=== PATIENT | female | born 1955 | race Caucasian/White ===

== ENCOUNTER → 2019-10-05 | Outpatient (CLI) | payer BC ==
[~2019-10-05] MED LIST: CLON1TAB10; GABA-339; GLIP1TAB8; METO-169; OMEPRAZOLE DR 20 MG CAPSULE
[2019-10-05 10:43] LABS: Basophils # (auto) 0.1 10 ^3/uL (0-0.2); Basophils % (auto) 1.1 % (0.0-2.0); Eosinophils # (auto) 0.1 10 ^3/uL (0-0.8); Hemoglobin 12.6 g/dL (12.2-16.2); Lymphocytes % (auto) 45.7 % (10.0-50.0); Mean Corpuscular Hgb Conc. 34.2 g/dL (32.0-36.0); Mean Corpuscular Volume 87.6 fL (80.0-100.0); Monocytes # (auto) 0.4 10 ^3/uL (0-1.3); Monocytes % (auto) 6.4 % (0.0-12.0); Neutrophils # (auto) 2.9 10 ^3/uL (1.6-8.6); Neutrophils % (auto) 44.8 % (37.0-80.0); Nucleated Red Blood Cells % 0.1 %; Platelet Count (auto) 247 10^3/uL (140-450); Red Blood Cells 4.22 10^6/uL (4.0-5.20); Red Cell Distribution Width 13.6 % (11.8-14.3); White Blood Cell 6.5 10^3/uL (4.4-10.8)
[2019-10-05 11:05] LABS: Potassium 4.5 mmol/L (3.5-5.1)
[2019-10-05 11:32] LABS: Albumin 4.2 g/dL (3.4-5.0); BUN/Creatinine Ratio 29.9; Bilirubin, Total 0.3 mg/dL (0.2-1.0); Calcium 9.4 mg/dL (8.5-10.1); Total Protein 7.8 g/dL (6.4-8.2)
== END | disposition home or self-care (01) ==
LOC: LAB 10:10
PROVIDERS: ATTEND Internal Medicine
DX: C50.411 Malignant neoplasm of upper-outer quadrant of right female breast (principal); Z88.0 Allergy status to penicillin; Z88.8 Allergy status to other drugs, medicaments and biological substances
CPT/HCPCS: 36415; 80053; 83615; 85025; 86300

== ENCOUNTER → 2019-11-17 | Outpatient (CLI) | payer BC ==
[2019-11-17 12:52] LABS: Urine Bacteria NONE SEEN /hpf (None Seen); Urine Blood Negative /uL (Negative); Urine Specific Gravity 1.017 (1.001-1.035); Urine WBC 3 /hpf (0 - 5)
[2019-11-17 22:42] LABS: Potassium 4.4 mmol/L (3.5-5.1)
[2019-11-17 22:51] LABS: Albumin 4.5 g/dL (3.4-5.0); BUN/Creatinine Ratio 21.4; Bilirubin, Total 0.7 mg/dL (0.2-1.0); Calcium 10.2 mg/dL (8.5-10.1); Total Protein 8.4 g/dL (6.4-8.2)
== END | disposition home or self-care (01) ==
LOC: LAB 12:07
PROVIDERS: ATTEND Family Medicine
DX: E10.69 Type 1 diabetes mellitus with other specified complication (principal); E78.49 Other hyperlipidemia; E66.01 Morbid (severe) obesity due to excess calories; E03.9 Hypothyroidism, unspecified
CPT/HCPCS: 36415; 80053; 80061; 81001; 82043; 82306; 82607; 83036; 84443

== ENCOUNTER → 2020-03-08 | Outpatient (CLI) | payer BC ==
[2020-03-08 10:43] LABS: Basophils # (auto) 0.1 10 ^3/uL (0-0.2); Eosinophils # (auto) 0.1 10 ^3/uL (0-0.8); Eosinophils % (auto) 1.9 % (0.0-7.0); Hematocrit 37.1 % (36.0-46.0); Hemoglobin 12.7 g/dL (12.2-16.2); Lymphocytes # (auto) 2.7 10 ^3/uL (0.4-5.4); Lymphocytes % (auto) 44.1 % (10.0-50.0); Mean Corpuscular Hemoglobin 29.9 pg (28.0-32.0); Mean Corpuscular Hgb Conc. 34.1 g/dL (32.0-36.0); Mean Corpuscular Volume 87.6 fL (80.0-100.0); Monocytes # (auto) 0.4 10 ^3/uL (0-1.3); Neutrophils # (auto) 2.8 10 ^3/uL (1.6-8.6); Nucleated Red Blood Cells % 0.1 %; Platelet Count (auto) 232 10^3/uL (140-450); Red Blood Cells 4.23 10^6/uL (4.0-5.20); Red Cell Distribution Width 13.7 % (11.8-14.3)
[2020-03-08 11:14] LABS: Potassium 4.5 mmol/L (3.5-5.1)
[2020-03-08 11:35] LABS: Albumin 4.3 g/dL (3.4-5.0); BUN/Creatinine Ratio 15.1; Bilirubin, Total 0.5 mg/dL (0.2-1.0); Calcium 10.1 mg/dL (8.5-10.1); Total Protein 8.2 g/dL (6.4-8.2)
== END | disposition home or self-care (01) ==
LOC: LAB 10:32
PROVIDERS: ATTEND Internal Medicine
DX: C50.411 Malignant neoplasm of upper-outer quadrant of right female breast (principal); E78.49 Other hyperlipidemia; R79.89 Other specified abnormal findings of blood chemistry
CPT/HCPCS: 36415; 80053; 80061; 83615; 85025; 86300

== ENCOUNTER → 2020-04-04 | Outpatient (CLI) | payer BC ==
[2020-04-04 11:09] LABS: Basophils # (auto) 0.1 10 ^3/uL (0-0.2); Eosinophils # (auto) 0.1 10 ^3/uL (0-0.8); Eosinophils % (auto) 1.6 % (0.0-7.0); Hematocrit 36.6 % (36.0-46.0); Lymphocytes # (auto) 2.5 10 ^3/uL (0.4-5.4); Lymphocytes % (auto) 44.6 % (10.0-50.0); Mean Corpuscular Hgb Conc. 35.6 g/dL (32.0-36.0); Mean Corpuscular Volume 87.1 fL (80.0-100.0); Monocytes # (auto) 0.4 10 ^3/uL (0-1.3); Monocytes % (auto) 7.6 % (0.0-12.0); Neutrophils # (auto) 2.5 10 ^3/uL (1.6-8.6); Neutrophils % (auto) 45.2 % (37.0-80.0); Nucleated Red Blood Cells % 0.1 %; Platelet Count (auto) 240 10^3/uL (140-450); Red Cell Distribution Width 13.6 % (11.8-14.3); White Blood Cell 5.6 10^3/uL (4.4-10.8)
[2020-04-04 11:49] LABS: Albumin 4.4 g/dL (3.4-5.0); Calcium 9.6 mg/dL (8.5-10.1); Potassium 4.6 mmol/L (3.5-5.1)
[2020-04-04 11:58] LABS: BUN/Creatinine Ratio 18.4; Bilirubin, Total 0.5 mg/dL (0.2-1.0); Total Protein 8.4 g/dL (6.4-8.2)
== END | disposition home or self-care (01) ==
LOC: LAB 10:33
PROVIDERS: ATTEND Internal Medicine
DX: C50.411 Malignant neoplasm of upper-outer quadrant of right female breast (principal); Z88.0 Allergy status to penicillin; Z88.1 Allergy status to other antibiotic agents; Z88.8 Allergy status to other drugs, medicaments and biological substances
CPT/HCPCS: 36415; 80053; 83615; 85025; 86300

== ENCOUNTER → 2020-06-27 | Outpatient (CLI) | payer BC ==
[~2020-06-27] MED LIST changes: -METO-169; +METO-289
== END | disposition home or self-care (01) ==
LOC: LAB 08:00
PROVIDERS: ATTEND Family Medicine
DX: L82.1 Other seborrheic keratosis (principal)

== ENCOUNTER → 2020-07-11 | Outpatient (CLI) | payer BC | END | disposition home or self-care (01) | LOC: LAB 12:03 | PROVIDERS: ATTEND Family Medicine | DX: L82.1 Other seborrheic keratosis (principal) ==

== ENCOUNTER → 2020-09-01 | Outpatient (CLI) | payer BC | END | disposition home or self-care (01) | LOC: XYW 09:02 | PROVIDERS: ATTEND Internal Medicine | DX: I08.8 Other rheumatic multiple valve diseases (principal); I12.9 Hypertensive chronic kidney disease with stage 1 through stage 4 chronic kidney disease, or unspecified chronic kidney disease; E11.22 Type 2 diabetes mellitus with diabetic chronic kidney disease; N18.9 Chronic kidney disease, unspecified | CPT/HCPCS: 93306 ==

== ENCOUNTER → 2020-09-09 | Outpatient (CLI) | payer BC ==
[2020-09-09 10:26] LABS: Basophils # (auto) 0.1 10 ^3/uL (0-0.2); Basophils % (auto) 1.4 % (0.0-2.0); Eosinophils # (auto) 0.1 10 ^3/uL (0-0.8); Eosinophils % (auto) 2.5 % (0.0-7.0); Hemoglobin 13.4 g/dL (12.2-16.2); Lymphocytes # (auto) 2.4 10 ^3/uL (0.4-5.4); Lymphocytes % (auto) 46.9 % (10.0-50.0); Mean Corpuscular Hemoglobin 30.4 pg (28.0-32.0); Mean Corpuscular Hgb Conc. 34.5 g/dL (32.0-36.0); Mean Corpuscular Volume 88.2 fL (80.0-100.0); Monocytes # (auto) 0.4 10 ^3/uL (0-1.3); Neutrophils # (auto) 2.2 10 ^3/uL (1.6-8.6); Neutrophils % (auto) 42.2 % (37.0-80.0); Nucleated Red Blood Cells % 0.1 %; Platelet Count (auto) 249 10^3/uL (140-450); Red Blood Cells 4.42 10^6/uL (4.0-5.20); Red Cell Distribution Width 13.4 % (11.8-14.3); White Blood Cell 5.1 10^3/uL (4.4-10.8)
[2020-09-09 10:36] LABS: Urine Bacteria NONE SEEN /hpf (None Seen); Urine Blood Negative /uL (Negative); Urine Budding Yeast OCCASIONAL /hpf (None Seen); Urine Specific Gravity 1.015 (1.001-1.035); Urine WBC 9 /hpf (0 - 5)
[2020-09-09 10:58] LABS: Albumin 4.4 g/dL (3.4-5.0); Calcium 9.5 mg/dL (8.5-10.1); Potassium 4.6 mmol/L (3.5-5.1)
[2020-09-09 11:04] LABS: BUN/Creatinine Ratio 19.7; Bilirubin, Total 0.4 mg/dL (0.2-1.0); Total Protein 8.3 g/dL (6.4-8.2)
== END | disposition home or self-care (01) ==
LOC: LAB 10:09
PROVIDERS: ATTEND Internal Medicine
DX: E11.22 Type 2 diabetes mellitus with diabetic chronic kidney disease (principal); E03.9 Hypothyroidism, unspecified
CPT/HCPCS: 36415; 80053; 80061; 81001; 82043; 82274; 82607; 83036; 84439; 84443; 85025; 85049

== ENCOUNTER → 2020-09-28 | Outpatient (CLI) | payer BC ==
[2020-09-28 09:43] LABS: Basophils # (auto) 0.1 10 ^3/uL (0-0.2); Eosinophils # (auto) 0.1 10 ^3/uL (0-0.8); Eosinophils % (auto) 2.1 % (0.0-7.0); Hematocrit 39.3 % (36.0-46.0); Hemoglobin 13.4 g/dL (12.2-16.2); Lymphocytes # (auto) 2.7 10 ^3/uL (0.4-5.4); Lymphocytes % (auto) 44.9 % (10.0-50.0); Mean Corpuscular Hemoglobin 29.9 pg (28.0-32.0); Mean Corpuscular Hgb Conc. 34.1 g/dL (32.0-36.0); Mean Corpuscular Volume 87.6 fL (80.0-100.0); Monocytes # (auto) 0.4 10 ^3/uL (0-1.3); Monocytes % (auto) 6.5 % (0.0-12.0); Neutrophils # (auto) 2.7 10 ^3/uL (1.6-8.6); Neutrophils % (auto) 45.5 % (37.0-80.0); Red Blood Cells 4.49 10^6/uL (4.0-5.20); Red Cell Distribution Width 13.6 % (11.8-14.3); White Blood Cell 5.9 10^3/uL (4.4-10.8)
[2020-09-28 10:06] LABS: Albumin 4.3 g/dL (3.4-5.0); Calcium 9.6 mg/dL (8.5-10.1); Potassium 4.3 mmol/L (3.5-5.1)
[2020-09-28 10:09] LABS: BUN/Creatinine Ratio 20.8; Bilirubin, Total 0.5 mg/dL (0.2-1.0); Total Protein 8.2 g/dL (6.4-8.2)
== END | disposition home or self-care (01) ==
LOC: LAB 09:12
PROVIDERS: ATTEND Internal Medicine
DX: C50.411 Malignant neoplasm of upper-outer quadrant of right female breast (principal); Z88.8 Allergy status to other drugs, medicaments and biological substances
CPT/HCPCS: 36415; 80053; 83615; 85025; 86300

== ENCOUNTER → 2020-12-07 | Outpatient (CLI) | payer BC ==
[2020-12-07 14:54] LABS: Albumin 3.9 g/dL (3.4-5.0); Calcium 8.7 mg/dL (8.5-10.1); Potassium 4.1 mmol/L (3.5-5.1)
[2020-12-07 14:57] LABS: BUN/Creatinine Ratio 15.7; Bilirubin, Total 0.3 mg/dL (0.2-1.0); Total Protein 7.4 g/dL (6.4-8.2)
== END | disposition home or self-care (01) ==
LOC: LAB 14:07
PROVIDERS: ATTEND Internal Medicine
DX: I10 Essential (primary) hypertension (principal)
CPT/HCPCS: 36415; 80053; 82306

== ENCOUNTER → 2021-02-06 | Outpatient (CLI) | payer BC ==
[~2021-02-06] MED LIST changes: +CLON-853; -CLON1TAB10
== END | disposition home or self-care (01) ==
LOC: LAB 14:02
PROVIDERS: ATTEND Internal Medicine
DX: Z87.440 Personal history of urinary (tract) infections (principal)
CPT/HCPCS: 87086

== ENCOUNTER → 2021-03-06 | Outpatient (CLI) | payer BC ==
[2021-03-06 08:27] LABS: Albumin 4.6 g/dL (3.4-5.0); Calcium 9.9 mg/dL (8.5-10.1); Potassium 4.2 mmol/L (3.5-5.1)
[2021-03-06 08:32] LABS: Bilirubin, Total 0.6 mg/dL (0.2-1.0); Total Protein 7.8 g/dL (6.4-8.2)
== END | disposition home or self-care (01) ==
LOC: LAB 06:59
PROVIDERS: ATTEND Internal Medicine
DX: E11.22 Type 2 diabetes mellitus with diabetic chronic kidney disease (principal)
CPT/HCPCS: 36415; 80053; 80061; 83036

== ENCOUNTER → 2021-03-27 | Outpatient (CLI) | payer BC ==
[2021-03-27 08:02] LABS: Basophils # (auto) 0.1 10 ^3/uL (0-0.2); Basophils % (auto) 1.4 % (0.0-2.0); Eosinophils # (auto) 0.1 10 ^3/uL (0-0.8); Eosinophils % (auto) 1.9 % (0.0-7.0); Hemoglobin 13.2 g/dL (12.2-16.2); Lymphocytes # (auto) 2.5 10 ^3/uL (0.4-5.4); Lymphocytes % (auto) 45.7 % (10.0-50.0); Mean Corpuscular Hgb Conc. 33.7 g/dL (32.0-36.0); Mean Corpuscular Volume 88.8 fL (80.0-100.0); Monocytes # (auto) 0.4 10 ^3/uL (0-1.3); Monocytes % (auto) 8.2 % (0.0-12.0); Neutrophils # (auto) 2.3 10 ^3/uL (1.6-8.6); Neutrophils % (auto) 42.8 % (37.0-80.0); Red Blood Cells 4.39 10^6/uL (4.0-5.20); Red Cell Distribution Width 13.8 % (11.8-14.3); White Blood Cell 5.4 10^3/uL (4.4-10.8)
[2021-03-27 08:11] LABS: Albumin 4.5 g/dL (3.4-5.0); Calcium 10.5 mg/dL (8.5-10.1); Potassium 4.3 mmol/L (3.5-5.1)
[2021-03-27 08:16] LABS: BUN/Creatinine Ratio 16.3; Total Protein 7.6 g/dL (6.4-8.2)
== END | disposition home or self-care (01) ==
LOC: LAB 07:16
PROVIDERS: ATTEND Internal Medicine
DX: C50.411 Malignant neoplasm of upper-outer quadrant of right female breast (principal)
CPT/HCPCS: 36415; 80053; 83615; 85025; 86300

== ENCOUNTER → 2021-04-02 | Outpatient (CLI) | payer BC, MEDICARE | END | disposition home or self-care (01) | LOC: XYW 13:27 | PROVIDERS: ATTEND Internal Medicine | DX: I08.3 Combined rheumatic disorders of mitral, aortic and tricuspid valves (principal); I31.3 Pericardial effusion (noninflammatory) | CPT/HCPCS: 93306 ==

== ENCOUNTER → 2021-04-23 | Outpatient (CLI) | payer BC, MEDICARE ==
[~2021-04-23] VITALS: Ht 157.5 cm; Wt 82.1 kg
[~2021-04-23] MED LIST changes: +ADENOSINE 69 MG in GIVE UN-DILUTED 0 ML IV STA
[2021-04-23 08:55] VITALS: BP 122/71
== END | disposition home or self-care (01) ==
LOC: XY 07:44
PROVIDERS: ATTEND Internal Medicine
DX: R00.2 Palpitations (principal); R06.02 Shortness of breath; R01.1 Cardiac murmur, unspecified; I10 Essential (primary) hypertension; E11.9 Type 2 diabetes mellitus without complications; E78.5 Hyperlipidemia, unspecified; F17.200 Nicotine dependence, unspecified, uncomplicated; Z68.33 Body mass index [BMI] 33.0-33.9, adult
CPT/HCPCS: 78452; 93017; A9500; J0153

== ENCOUNTER → 2021-10-01 | Outpatient (CLI) | payer OTHER ==
[~2021-10-01] MED LIST changes: -ADENOSINE 69 MG in GIVE UN-DILUTED 0 ML IV STA
[2021-10-01 15:06] LABS: Basophils # (auto) 0.1 10 ^3/uL (0-0.2); Basophils % (auto) 0.9 % (0.0-2.0); Eosinophils # (auto) 0.1 10 ^3/uL (0-0.8); Hematocrit 40.9 % (36.0-46.0); Hemoglobin 13.3 g/dL (12.2-16.2); Lymphocytes # (auto) 2.8 10 ^3/uL (0.4-5.4); Lymphocytes % (auto) 43.5 % (10.0-50.0); Mean Corpuscular Hemoglobin 28.9 pg (28.0-32.0); Mean Corpuscular Hgb Conc. 32.4 g/dL (32.0-36.0); Mean Corpuscular Volume 89.1 fL (80.0-100.0); Monocytes # (auto) 0.4 10 ^3/uL (0-1.3); Neutrophils % (auto) 46.6 % (37.0-80.0); Nucleated Red Blood Cells % 0.1 %; Red Cell Distribution Width 13.9 % (11.8-14.3); White Blood Cell 6.4 10^3/uL (4.4-10.8)
[2021-10-01 15:42] LABS: Albumin 4.2 g/dL (3.4-5.0); Calcium 9.3 mg/dL (8.5-10.1); Potassium 4.4 mmol/L (3.5-5.1)
[2021-10-01 15:46] LABS: BUN/Creatinine Ratio 21.6; Bilirubin, Total 0.4 mg/dL (0.2-1.0); Total Protein 7.4 g/dL (6.4-8.2)
== END | disposition home or self-care (01) ==
LOC: LAB 14:44
PROVIDERS: ATTEND Internal Medicine
DX: C50.411 Malignant neoplasm of upper-outer quadrant of right female breast (principal)
CPT/HCPCS: 36415; 80053; 83615; 85025; 86300

== ENCOUNTER → 2021-10-24 | Outpatient (CLI) | payer OTHER | END | disposition home or self-care (01) | LOC: LAB 10:21 | PROVIDERS: ATTEND Student in an Organized Health Care Education/Training Program | DX: Z12.11 Encounter for screening for malignant neoplasm of colon (principal); E11.42 Type 2 diabetes mellitus with diabetic polyneuropathy | CPT/HCPCS: 36415; 82274; 83036 ==

== ENCOUNTER → 2022-04-12 | Outpatient (CLI) | payer OTHER ==
[2022-04-12 10:31] LABS: Basophils # (auto) 0.1 10 ^3/uL (0-0.2); Basophils % (auto) 1.2 % (0.0-2.0); Eosinophils # (auto) 0.1 10 ^3/uL (0-0.8); Eosinophils % (auto) 2.4 % (0.0-7.0); Hematocrit 40.2 % (36.0-46.0); Hemoglobin 13.7 g/dL (12.2-16.2); Lymphocytes # (auto) 2.9 10 ^3/uL (0.4-5.4); Mean Corpuscular Hemoglobin 30.1 pg (28.0-32.0); Mean Corpuscular Hgb Conc. 34.2 g/dL (32.0-36.0); Mean Corpuscular Volume 88.3 fL (80.0-100.0); Monocytes # (auto) 0.4 10 ^3/uL (0-1.3); Monocytes % (auto) 6.5 % (0.0-12.0); Neutrophils # (auto) 2.5 10 ^3/uL (1.6-8.6); Neutrophils % (auto) 41.9 % (37.0-80.0); Red Blood Cells 4.55 10^6/uL (4.0-5.20); Red Cell Distribution Width 14.1 % (11.8-14.3)
[2022-04-12 11:05] LABS: Albumin 4.1 g/dL (3.4-5.0); BUN/Creatinine Ratio 25.4; Calcium 9.2 mg/dL (8.5-10.1); Potassium 4.4 mmol/L (3.5-5.1)
[2022-04-12 11:08] LABS: Bilirubin, Total 0.5 mg/dL (0.2-1.0); Total Protein 7.5 g/dL (6.4-8.2)
== END | disposition home or self-care (01) ==
LOC: LAB 10:05
PROVIDERS: ATTEND Internal Medicine
DX: C50.411 Malignant neoplasm of upper-outer quadrant of right female breast (principal); Z88.0 Allergy status to penicillin; Z88.8 Allergy status to other drugs, medicaments and biological substances
CPT/HCPCS: 36415; 80053; 83615; 85025; 86300

== ENCOUNTER 2022-05-06 15:38 | Emergency (ER) | payer OTHER ==
[~2022-05-06] VITALS: Ht 157.5 cm; Wt 78.0 kg
[2022-05-06] MEDS ORDERED: SODIUM CHLORIDE 0.9% 1,000 ML IV ONE (16:15)
[2022-05-06] MEDS ORDERED: MORPHINE SULFATE 4 MG/ML SYR/VIAL IV ONE (16:30)
[2022-05-06] MEDS ORDERED: ONDANSETRON HCL 4 MG/2 ML VIAL IV ONE (16:30)
[2022-05-06] MEDS ORDERED: SODIUM CHLORIDE 0.9% 1,000 ML IVB ONE (16:30)
[2022-05-06 16:56] LABS: Basophils # (auto) 0 10 ^3/uL (0-0.2); Basophils % (auto) 0.5 % (0.0-2.0); Eosinophils # (auto) 0 10 ^3/uL (0-0.8); Eosinophils % (auto) 0.2 % (0.0-7.0); Hematocrit 34.8 % (36.0-46.0); Hemoglobin 12.5 g/dL (12.2-16.2); Lymphocytes % (auto) 11.7 % (10.0-50.0); Mean Corpuscular Hemoglobin 30.8 pg (28.0-32.0); Mean Corpuscular Hgb Conc. 35.9 g/dL (32.0-36.0); Mean Corpuscular Volume 85.7 fL (80.0-100.0); Monocytes # (auto) 0.8 10 ^3/uL (0-1.3); Monocytes % (auto) 9.6 % (0.0-12.0); Neutrophils # (auto) 6.9 10 ^3/uL (1.6-8.6); Red Blood Cells 4.05 10^6/uL (4.0-5.20); Red Cell Distribution Width 13.7 % (11.8-14.3); White Blood Cell 8.8 10^3/uL (4.4-10.8)
[2022-05-06 17:07] LABS: Urine Bacteria NONE SEEN /hpf (None Seen); Urine Blood Negative /uL (Negative); Urine Specific Gravity 1.025 (1.001-1.035); Urine WBC 340 /hpf (0 - 5); Urine WBC Clumps PRESENT /hpf (None Seen)
[2022-05-06 17:20] LABS: Albumin 3.5 g/dL (3.4-5.0); Calcium 8.6 mg/dL (8.5-10.1); Potassium 3.5 mmol/L (3.5-5.1)
[2022-05-06 17:23] LABS: Bilirubin, Total 0.7 mg/dL (0.2-1.0); Total Protein 6.2 g/dL (6.4-8.2)
[2022-05-06 19:14] VITALS: BP 102/65
[2022-05-06] MEDS ORDERED: HYDR-4798 PO (19:19)
[2022-05-06] MEDS ORDERED: CIPR-173 PO (19:19)
[2022-05-06] MEDS ORDERED: levoFLOXacin 500MG 100 ML IV ONE (19:45)
== END 2022-05-06 19:52 | disposition home or self-care (01) ==
LOC: ER 15:38
DX: N39.0 Urinary tract infection, site not specified (principal); E11.9 Type 2 diabetes mellitus without complications; I10 Essential (primary) hypertension; F32.9 Major depressive disorder, single episode, unspecified; E78.5 Hyperlipidemia, unspecified; Z87.442 Personal history of urinary calculi; Z90.710 Acquired absence of both cervix and uterus; Z87.891 Personal history of nicotine dependence; Z88.8 Allergy status to other drugs, medicaments and biological substances; Z88.0 Allergy status to penicillin
CPT/HCPCS: 36415; 74176; 80053; 81001; 83690; 85025; 96361; 96374; 96375; 99285; J2270; J2405; J7030

== ENCOUNTER → 2022-10-02 | Outpatient (CLI) | payer OTHER ==
[~2022-10-02] MED LIST changes: +CIPR-173 PO; +HYDR-4798 PO
[2022-10-02 14:22] LABS: Basophils # (auto) 0.1 10 ^3/uL (0-0.2); Eosinophils # (auto) 0.1 10 ^3/uL (0-0.8); Eosinophils % (auto) 1.3 % (0.0-7.0); Hematocrit 42.7 % (36.0-46.0); Hemoglobin 14.3 g/dL (12.2-16.2); Lymphocytes # (auto) 2.7 10 ^3/uL (0.4-5.4); Lymphocytes % (auto) 40.3 % (10.0-50.0); Mean Corpuscular Hemoglobin 29.5 pg (28.0-32.0); Mean Corpuscular Hgb Conc. 33.5 g/dL (32.0-36.0); Monocytes # (auto) 0.5 10 ^3/uL (0-1.3); Monocytes % (auto) 7.3 % (0.0-12.0); Neutrophils # (auto) 3.4 10 ^3/uL (1.6-8.6); Neutrophils % (auto) 50.1 % (37.0-80.0); Red Blood Cells 4.85 10^6/uL (4.0-5.20); Red Cell Distribution Width 13.7 % (11.8-14.3); White Blood Cell 6.8 10^3/uL (4.4-10.8)
[2022-10-02 14:53] LABS: Potassium 4.1 mmol/L (3.5-5.1)
[2022-10-02 15:00] LABS: Albumin 4.2 g/dL (3.4-5.0); BUN/Creatinine Ratio 12.7 (10.0-20.0); Bilirubin, Total 0.3 mg/dL (0.2-1.0); Calcium 10.3 mg/dL (8.5-10.1); Total Protein 7.8 g/dL (6.4-8.2)
== END | disposition home or self-care (01) ==
LOC: LAB 14:07
PROVIDERS: ATTEND Internal Medicine
DX: C50.411 Malignant neoplasm of upper-outer quadrant of right female breast (principal); Z88.8 Allergy status to other drugs, medicaments and biological substances; Z88.0 Allergy status to penicillin
CPT/HCPCS: 36415; 80053; 83615; 85025; 86300

== ENCOUNTER → 2023-04-11 | Outpatient (CLI) | payer OTHER ==
[2023-04-11 11:33] LABS: Basophils # (auto) 0.1 10 ^3/uL (0-0.2); Basophils % (auto) 0.9 % (0.0-2.0); Eosinophils # (auto) 0.1 10 ^3/uL (0-0.8); Eosinophils % (auto) 1.9 % (0.0-7.0); Hematocrit 43.3 % (36.0-46.0); Hemoglobin 14.8 g/dL (12.2-16.2); Lymphocytes # (auto) 2.8 10 ^3/uL (0.4-5.4); Lymphocytes % (auto) 42.3 % (10.0-50.0); Mean Corpuscular Hemoglobin 30.1 pg (28.0-32.0); Mean Corpuscular Hgb Conc. 34.1 g/dL (32.0-36.0); Mean Corpuscular Volume 88.3 fL (80.0-100.0); Monocytes # (auto) 0.5 10 ^3/uL (0-1.3); Monocytes % (auto) 7.2 % (0.0-12.0); Neutrophils # (auto) 3.2 10 ^3/uL (1.6-8.6); Neutrophils % (auto) 47.7 % (37.0-80.0); Nucleated Red Blood Cells % 0.1 %; Red Blood Cells 4.91 10^6/uL (4.0-5.20); White Blood Cell 6.7 10^3/uL (4.4-10.8)
[2023-04-11 12:15] LABS: Alanine Aminotransferase 29 U/L (7-40); Alkaline Phosphatase 66 U/L (46-116); Anion Gap 9 (5-15); Aspartate Aminotransferase 21 U/L (13-40); BUN/Creatinine Ratio 11.1 (10.0-20.0); Blood Urea Nitrogen 9 mg/dL (9-23); Calcium 10.3 mg/dL (8.5-10.1); Carbon Dioxide 25 mmol/L (20-30); Chloride 103 mmol/L (98-107); Glucose 180 mg/dL (74-106); Potassium 4.4 mmol/L (3.5-5.1); Sodium 137 mmol/L (136-145)
[2023-04-11 12:18] LABS: Bilirubin, Total 0.5 mg/dL (0.2-1.0); Total Protein 7.5 g/dL (5.7-8.2)
== END | disposition home or self-care (01) ==
LOC: LAB 11:04
PROVIDERS: ATTEND Internal Medicine
DX: C50.411 Malignant neoplasm of upper-outer quadrant of right female breast (principal)
CPT/HCPCS: 36415; 80053; 83615; 85025; 86300

== ENCOUNTER → 2023-08-08 | Outpatient (CLI) | payer OTHER ==
[2023-08-08 11:09] LABS: Alanine Aminotransferase 26 U/L (7-40); Albumin 4.9 g/dL (3.2-4.8); Alkaline Phosphatase 60 U/L (46-116); Anion Gap 6 (5-15); Aspartate Aminotransferase 18 U/L (13-40); BUN/Creatinine Ratio 16.4 (10.0-20.0); Bilirubin, Total 0.6 mg/dL (0.2-1.0); Blood Urea Nitrogen 10 mg/dL (9-23); Calcium 10.2 mg/dL (8.5-10.1); Carbon Dioxide 28 mmol/L (20-30); Chloride 105 mmol/L (98-107); Glucose 99 mg/dL (74-106); Sodium 139 mmol/L (136-145); Total Protein 7.2 g/dL (5.7-8.2)
[2023-08-08 11:57] LABS: Micro Albumin < 3.0 mg/L (<30.0)
== END | disposition home or self-care (01) ==
LOC: LAB 10:31
PROVIDERS: ATTEND Student in an Organized Health Care Education/Training Program
DX: E11.42 Type 2 diabetes mellitus with diabetic polyneuropathy (principal)
CPT/HCPCS: 36415; 80053; 82043; 82570; 83036

== ENCOUNTER → 2023-10-21 | Outpatient (CLI) | payer OTHER ==
[2023-10-21 10:45] LABS: Basophils # (auto) 0 10 ^3/uL (0-0.2); Basophils % (auto) 0.8 % (0.0-2.0); Eosinophils # (auto) 0.1 10 ^3/uL (0-0.8); Eosinophils % (auto) 1.6 % (0.0-7.0); Hematocrit 35.2 % (36.0-46.0); Hemoglobin 12.2 g/dL (12.2-16.2); Lymphocytes # (auto) 2.4 10 ^3/uL (0.4-5.4); Lymphocytes % (auto) 39.6 % (10.0-50.0); Mean Corpuscular Hemoglobin 31.4 pg (28.0-32.0); Mean Corpuscular Hgb Conc. 34.8 g/dL (32.0-36.0); Mean Corpuscular Volume 90.2 fL (80.0-100.0); Monocytes # (auto) 0.4 10 ^3/uL (0-1.3); Monocytes % (auto) 6.3 % (0.0-12.0); Neutrophils # (auto) 3.2 10 ^3/uL (1.6-8.6); Neutrophils % (auto) 51.7 % (37.0-80.0); Platelet Count (auto) 297 10^3/uL (140-450); Red Cell Distribution Width 13.1 % (11.8-14.3); White Blood Cell 6.2 10^3/uL (4.4-10.8)
[2023-10-21 11:26] LABS: Alanine Aminotransferase 26 U/L (7-40); Albumin 4.6 g/dL (3.2-4.8); Alkaline Phosphatase 68 U/L (46-116); Anion Gap 8 (5-15); Aspartate Aminotransferase 22 U/L (13-40); BUN/Creatinine Ratio 11.9 (10.0-20.0); Bilirubin, Total 0.3 mg/dL (0.2-1.0); Blood Urea Nitrogen 8 mg/dL (9-23); Calcium 9.9 mg/dL (8.7-10.4); Carbon Dioxide 26 mmol/L (20-30); Chloride 104 mmol/L (98-107); Glucose 204 mg/dL (74-106); Potassium 4.5 mmol/L (3.5-5.1); Sodium 138 mmol/L (136-145); Total Protein 7.3 g/dL (5.7-8.2)
== END | disposition home or self-care (01) ==
LOC: LAB 10:30
PROVIDERS: ATTEND Student in an Organized Health Care Education/Training Program
DX: C50.411 Malignant neoplasm of upper-outer quadrant of right female breast (principal)
CPT/HCPCS: 36415; 80053; 83615; 85025; 86300

== ENCOUNTER → 2023-12-23 | Outpatient (CLI) | payer OTHER ==
[2023-12-23 12:26] LABS: Alanine Aminotransferase 34 U/L (7-40); Alkaline Phosphatase 66 U/L (46-116); Anion Gap 9 (5-15); BUN/Creatinine Ratio 14.5 (10.0-20.0); Blood Urea Nitrogen 9 mg/dL (9-23); Calcium 10.7 mg/dL (8.7-10.4); Carbon Dioxide 25 mmol/L (20-31); Chloride 104 mmol/L (98-107); Glucose 100 mg/dL (74-106); Potassium 4.2 mmol/L (3.5-5.1); Sodium 138 mmol/L (136-145)
[2023-12-23 12:27] LABS: Albumin 4.7 g/dL (3.2-4.8); Aspartate Aminotransferase 22 U/L (13-40); Bilirubin, Total 0.5 mg/dL (0.2-1.0); Total Protein 7.1 g/dL (5.7-8.2)
== END | disposition home or self-care (01) ==
LOC: LAB 11:01
PROVIDERS: ATTEND Internal Medicine
DX: I10 Essential (primary) hypertension (principal); R00.2 Palpitations; E78.5 Hyperlipidemia, unspecified; E11.9 Type 2 diabetes mellitus without complications
CPT/HCPCS: 36415; 80053; 82607; 83036; 84207; 84443

== ENCOUNTER → 2024-01-05 | Outpatient (CLI) | payer OTHER | END | disposition home or self-care (01) | LOC: XYW 13:16 | PROVIDERS: ATTEND Internal Medicine | DX: I11.9 Hypertensive heart disease without heart failure (principal); R00.2 Palpitations; E11.9 Type 2 diabetes mellitus without complications | CPT/HCPCS: 93306 ==

== ENCOUNTER 2024-02-04 08:06 | Inpatient (IN) | payer OTHER ==
[2024-02-03 12:40] LABS: Basophils # (auto) 0.1 10 ^3/uL (0-0.2); Basophils % (auto) 1.1 % (0.0-2.0); Eosinophils # (auto) 0.1 10 ^3/uL (0-0.8); Eosinophils % (auto) 1.9 % (0.0-7.0); Hematocrit 37.3 % (36.0-46.0); Hemoglobin 12.8 g/dL (12.2-16.2); Lymphocytes # (auto) 2.9 10 ^3/uL (0.4-5.4); Lymphocytes % (auto) 44.7 % (10.0-50.0); Mean Corpuscular Hemoglobin 30.5 pg (28.0-32.0); Mean Corpuscular Hgb Conc. 34.3 g/dL (32.0-36.0); Mean Corpuscular Volume 88.9 fL (80.0-100.0); Monocytes # (auto) 0.4 10 ^3/uL (0-1.3); Monocytes % (auto) 6.3 % (0.0-12.0); Platelet Count (auto) 242 10^3/uL (140-450); Red Cell Distribution Width 14.1 % (11.8-14.3); White Blood Cell 6.4 10^3/uL (4.4-10.8)
[2024-02-03 12:58] LABS: INR 1.02 (0.9-1.15); Partial Thromboplastin Time 27.1 SEC (24.5-34.5); Prothrombin Time 10.8 sec (9.3-11.8)
[2024-02-03 13:12] LABS: Alanine Aminotransferase 36 U/L (7-40); Albumin 4.8 g/dL (3.2-4.8); Alkaline Phosphatase 61 U/L (46-116); Anion Gap 8 (5-15); Aspartate Aminotransferase 25 U/L (13-40); Bilirubin, Total 0.5 mg/dL (0.2-1.0); Blood Urea Nitrogen 9 mg/dL (9-23); Calcium 10.6 mg/dL (8.7-10.4); Carbon Dioxide 27 mmol/L (20-31); Chloride 105 mmol/L (98-107); Glucose 89 mg/dL (74-106); Potassium 4.8 mmol/L (3.5-5.1); Sodium 140 mmol/L (136-145); Total Protein 7.1 g/dL (5.7-8.2)
[2024-02-04] VITALS (10 sets, daily range): BP systolic 106–143; BP diastolic 67–92; PULSE 69–83; RESP 12–19; TEMP 97.3–97.6; O2SAT 94–100
[~2024-02-04] VITALS: Ht 157.5 cm; Wt 80.6 kg
[~2024-02-04 08:06] MED LIST changes: +AMLO1TAB22 PO; +ANAS1TAB7 PO; +ASPI-543 PO; +ATOR20TA50 PO; -CIPR-173 PO; -CLON-853; +DULA0.5I SC; -GABA-339; +GEMF-66 PO; +GLIP10TA9 PO; -GLIP1TAB8; -HYDR-4798 PO; +LEVO88TA4 PO; +METF-370 PO; -METO-289; +METO-289 PO; -OMEPRAZOLE DR 20 MG CAPSULE; +TRIA0.1P2 TOP
--- NOTE | 2024-02-04 13:52 | DVHOP2 ---
Operative Report -Cardiology Report Details Date: 02/04/24 Preop Diagnosis: Aortic stenosis. Postop Diagnosis: Severe aortic stenosis with two-vessel coronary disease. Surgeon: Clari Watts MD Anesthesiologist: Conscious sedation. Anesthesia: Mac, Local Consent: The patient was informed of the risks and benefits of the procedure. These include but are not limited to complications of anesthesia, postoperative infection, incomplete relief of symptoms, recurrence of symptoms, damage to blood vessels, nerves and tendons, deep venous thrombosis, pulmonary embolism and possible need for repeat surgery in the future. Complications: No complications. Estimated Blood Loss: 5 cc. Findings: Severe aortic stenosis. Two-vessel coronary artery disease. Normal left ventricular function. Indications for Surgery: Severe aortic stenosis. Name of Procedure Performed Right and left heart catheterization bilateral cine coronary angiography, left ventriculography, Procedure Details Procedure Details: Prior local anesthesia with 2% lidocaine to the right groin and full informed consent obtained the patient was prepped and draped in the usual fashion followed by placement of a seven Turkmen sheath into the femoral artery through which a seven Turkmen Belmont-Sherry catheter was advanced into the right atrium, right ventricle and pulmonary artery. Pressures were obtained and recorded with the thermodilution technique in triplicate and capillary wedge pressures were obtained. A six Turkmen sheath was advanced into the femoral artery through which Lu catheters and a Sunny catheter was used to evaluate the left ventricular and aortic pressure simultaneously with dual transducers. No complications. Hemodynamics: Right atrial pressure was five. Right ventricular pressure was 25/5 with a pulmonary artery pressure of 25/15. Capillary wedge pressure was six. Cardiac output by the thermodilution technique was 4.67 with an index of 2.64. Left ventricular pressure was 177 with aortic pressure of 116. There was a proximally 60 mm gradient across the aortic valve. Aortic valve area was calculated at 0.64 cm2. This is consistent with severe aortic stenosis. Coronary anatomy: The RCA is a codominant vessel it gives off the PDA. It is normal in its proximal mid and distal segments. Posterolateral branches are not present. Left main is large and normal. Left anterior descending coronary artery is a large vessel with a proximal 90% stenosis. The 1st diagonal has a 90% stenosis this is a smaller vessel. The mid and distal segments are free of significant disease. The circumflex is large and codominant. It is normal in its proximal portion. The 1st obtuse marginal branches a large vessel and it is normal. 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 There are two tandem lesions at about 95 and 90% respectively. Ventriculography: Ventriculography in the [place] projection was performed showing an overall estimated ejection fraction of 65%. Impression: 1. Normal left ventricular end-diastolic pressure at rest. 2. Normal ejection fraction. 3. Two-vessel coronary artery disease involving the left anterior descending and circumflex coronaries as mentioned. 4. Severe to critical aortic stenosis with a valve area of 0.6 cm2. Recommendations: Patient will be transferred to [facility] for aortic valve surgery and possible coronary revascularization/bypass. Condition Fair Disposition Still a Patient CLARI WATTS Sr., MD Feb 04, 2024 13:51
--- NOTE | 2024-02-04 13:53 | DVHPN2 ---
Date of Service: Feb 04, 2024 Billing Provider: CLARI VALLE Sr., MD Cardiology Common Codes: 06569-WYG/OBS SAME DATE (High) Cardiology Procedure Codes: 25620-AXEV HEART CATH W/INTRA INJ, 71488-K/R & L HEART CATH FOR LVG, 52458-ZJS & PLCMT OF FLOW DIR CATH CLARI VALLE Sr., MD Feb 04, 2024 13:53
--- NOTE | 2024-02-04 15:10 | DVHHP2 ---
Review of Systems Allergies: Coded Allergies: Lisinopril (Verified Allergy, Unknown, 02/03/24) Penicillins (Verified Allergy, Unknown, 02/03/24) Sitagliptin (Verified Allergy, Unknown, 02/03/24) Uncoded Allergies: INVOKONA (Allergy, Severe, 08/13/15) Medications Current Medications Medications Dose Ordered Sig/Reji Route Start Time Stop Time Status Last Admin Dose Admin Nitroglycerin 0.4 mg Q5MINP PRN SL 02/04/24 15:15 UNV Morphine Sulfate 2 mg Q30M PRN IV 02/04/24 15:15 UNV Levothyroxine Sodium 88 mcg QAM@0600 PO 02/05/24 06:00 UNV Diagnostic Test (Pha) 1 strip ACHS 02/04/24 17:00 UNV Insulin Human Regular ACHS SC 02/04/24 17:00 UNV Dextrose 50 ml UD PRN IV 02/04/24 15:15 UNV Exam Vital Signs Vital Signs Date Time Temp Pulse Resp B/P (MAP) Pulse Ox O2 Delivery O2 Flow Rate FiO2 02/04/24 14:20 80 17 109/73 (85) 100 02/04/24 13:53 97.6 97.6 Labs/Xrays Labs Test 02/04/24 13:25 02/03/24 12:34 Range/Units POC Glucose 87 70-106 mg/dl White Blood Count 6.4 4.4-10.8 10^3/uL Red Blood Count 4.20 4.0-5.20 10^6/uL Hemoglobin 12.8 12.2-16.2 g/dL Hematocrit 37.3 36.0-46.0 % Mean Corpuscular Volume 88.9 80.0-100.0 fL Mean Corpuscular Hemoglobin 30.5 28.0-32.0 pg Mean Corpuscular Hemoglobin Concent 34.3 32.0-36.0 g/dL Red Cell Distribution Width 14.1 11.8-14.3 % Platelet Count 242 140-450 10^3/uL Mean Platelet Volume 7.1 6.9-10.8 fL Neutrophils (%) (Auto) 46.0 37.0-80.0 % Lymphocytes (%) (Auto) 44.7 10.0-50.0 % Monocytes (%) (Auto) 6.3 0.0-12.0 % Eosinophils (%) (Auto) 1.9 0.0-7.0 % Basophils (%) (Auto) 1.1 0.0-2.0 % Neutrophils # (Auto) 3.0 1.6-8.6 10 ^3/uL Lymphocytes # (Auto) 2.9 0.4-5.4 10 ^3/uL Monocytes # (Auto) 0.4 0-1.3 10 ^3/uL Eosinophils # (Auto) 0.1 0-0.8 10 ^3/uL Basophils # (Auto) 0.1 0-0.2 10 ^3/uL Nucleated Red Blood Cells 0.0 % Prothrombin Time 10.8 9.3-11.8 sec Prothrombin Time INR 1.02 0.9-1.15 Activated Partial Thromboplast Time 27.1 24.5-34.5 SEC Sodium Level 140 136-145 mmol/L Potassium Level 4.8 3.5-5.1 mmol/L Chloride Level 105 98-107 mmol/L Carbon Dioxide Level 27 20-31 mmol/L Anion Gap 8 5-15 Blood Urea Nitrogen 9 9-23 mg/dL Creatinine 0.69 0.550-1.02 mg/dL Glomerular Filtration Rate Calc 94 >90 mL/min BUN/Creatinine Ratio 13.0 10.0-20.0 Serum Glucose 89 74-106 mg/dL Calcium Level 10.6 H 8.7-10.4 mg/dL Total Bilirubin 0.5 0.2-1.0 mg/dL Aspartate Amino Transferase (AST) 25 13-40 U/L Alanine Aminotransferase (ALT) 36 7-40 U/L Alkaline Phosphatase 61 46-116 U/L Total Protein 7.1 5.7-8.2 g/dL Albumin 4.8 3.2-4.8 g/dL Assessment/Plan Assessment/Plan see dictated note Plan discussed with: Patient My Orders Orders - COLLEEN TAVAREZ MD Procedure Category Date Status Time Admit ADMIT 02/04/24 Transmitted 15:06 Nitroglycerin [facility] 02/04/24 Logged Sublingual (Ntrostat 15:15 Morphine Sulfate PHA 02/04/24 Logged Injection 15:15 Stat Ekg For Chest QI 02/04/24 In Process Pain 15:06 Notify Of Changes QI 02/04/24 In Process From Base 15:06 Marriage Therapist For QI 02/04/24 In Process 24 Hours 15:06 Emergency Dysrhythmia [facility] 02/04/24 In Process Protocol 15:06 Rhythm Strips Once [facility] 02/04/24 In Process Every Shift 15:06 Oxygen By Nasal RT 02/04/24 Transmitted Cannula 15:06 Consistent DIET 02/04/24 Transmitted Carb(Ccho)Diabetes Dinner Levothyroxine Tablet PHA 02/05/24 Logged (Synthroid Tablet) 06:00 Glucose Blood PHA 02/04/24 Logged (Accu-Chek Comfort 17:00 Insulin R (Human) PHA 02/04/24 Logged (Insulin R) 17:00 Dextrose 50% Syringe PHA 02/04/24 Logged 15:15 Aspirin Tablet PHA 02/05/24 Transmitted 10:00 Atorvastatin (Lipitor) PHA 02/04/24 Transmitted 22:00 (Nf) Anastrozole PHA 02/05/24 Transmitted 10:00 Date of Service: Feb 04, 2024 Billing Provider: COLLEEN TAVAREZ MD Common Visit Codes: [id number] INP/OBS CARE (HIGH) COLLEEN TAVAREZ MD Feb 04, 2024 15:10
[2024-02-04] MEDS ORDERED: DEXTROSE (50%) 50ML SYRG IV PRN (15:15)
[2024-02-04] MEDS ORDERED: MORPHINE SULFATE INJ 2 MG/ml SYRG IV PRN (15:15)
[2024-02-04] MEDS ORDERED: NITROGLYCERIN 0.4 MG SL TAB SL PRN (15:15)
[2024-02-04] MEDS ORDERED: ONDANSETRON HCL 4 MG/2 ML VIAL IV PRN (15:30)
[2024-02-04] MEDS: ACCU-CHEK COMFORT CURVE STRIP VI SCH (17:53)
[2024-02-04] MEDS: ACETAMINOPHEN 500 MG TAB PO PRN (17:54)
[2024-02-04] MEDS: InsuLIN REG 1unit/0.01ml Soln (100units/ml) SC SCH (17:59)
[2024-02-04] MEDS: ANGIOMAX 250 MG VIAL IV ONE (20:06)
[2024-02-04] MEDS: MIDAZOLAM HCL 2MG/2ML 2ml VIAL (1mg/ml) ONE (20:06)
[2024-02-04] MEDS: fentaNYL CITRATE 100 MCG/2 ML VL ONE (20:06)
[2024-02-04] MEDS: SODIUM CHL 0.9% 0 ML ONE (20:07)
[2024-02-04] MEDS: IODIXANOL 320MG/ML 100ML BTL IV ONE (20:07)
[2024-02-04] MEDS: LIDOCAINE 2%HCL (LOCAL ANESTH.) INJ 20ML MDV ONE (20:07)
[2024-02-04 20:19] LABS: Urine Bacteria FEW /hpf (None Seen); Urine Blood 1+ /uL (Negative); Urine Clarity Clear (Clear); Urine Color Light-Yellow (Yellow); Urine Protein, UAD Negative (Negative); Urine Specific Gravity 1.022 (1.001-1.035); Urine Urobilinogen Normal (Negative); Urine WBC 15 /hpf (0 - 5)
[2024-02-04] MEDS: ATORVASTATIN 20 MG TAB PO SCH (22:22)
[2024-02-05] VITALS (8 sets, daily range): BP systolic 100–153; BP diastolic 61–74; PULSE 63–93; RESP 12–18; TEMP 97.3–98; O2SAT 93–99
--- NOTE | 2024-02-05 03:15 | DVHHP ---
ADMIT DATE: 02/04/2024 HISTORY OF PRESENT ILLNESS: The patient is a 68-year-old lady who was admitted after she was noted to have increasing severity of aortic stenosis. The patient has dyspnea on exertion. No chest pain. There is no syncope, no pedal edema. REVIEW OF SYSTEMS: Review of rest of systems are otherwise currently negative. PAST MEDICAL HISTORY: Significant for aortic stenosis, diabetes, hypertension, hyperlipidemia as well as history of breast cancer. MEDICATIONS: Include amlodipine, anastrozole, aspirin, Lipitor, Trulicity, gemfibrozil, glipizide, levothyroxine, metformin, metoprolol. ALLERGIES: TO INVOKANA, LISINOPRIL, PENICILLIN, AND SITAGLIPTIN. SOCIAL HISTORY: Denies smoking or alcohol. FAMILY HISTORY: Negative. PHYSICAL EXAMINATION: GENERAL: The patient is awake, alert. VITAL SIGNS: Temperature of 97.6, pulse 76 per minute, blood pressure 108/67. SHEENT: Unremarkable. NECK: There is no JVD, no pedal edema. LUNGS: Equal bilaterally. No added sounds. CARDIOVASCULAR: S1, S2 is regular. There is an ejection systolic murmur present in the aortic area. ABDOMEN: Soft. There is no organomegaly. NEUROLOGIC: Nonfocal. MUSCULOSKELETAL: Normal. ASSESSMENT AND PLAN: * Severe aortic stenosis with coronary artery disease. The patient will be admitted and placed on aspirin and Lipitor and will be arranged for transfer for CABG as well as aortic valve replacement. * Diabetes mellitus. She will be placed on sliding scale insulin. * Hypertension. * Hypothyroidism. * Hyperlipidemia. * Obesity. * History of breast cancer. MD CHERELLE Quintanilla/MATHEUS TID: [id number] RECEIPT: [id number]
[2024-02-05] MEDS: LEVOTHYROXINE SODIUM 88 MCG TAB PO SCH (06:16)
[2024-02-05 06:45] LABS: Basophils # (auto) 0.1 10 ^3/uL (0-0.2); Eosinophils # (auto) 0.1 10 ^3/uL (0-0.8); Eosinophils % (auto) 1.7 % (0.0-7.0); Hematocrit 34.8 % (36.0-46.0); Hemoglobin 12.2 g/dL (12.2-16.2); Lymphocytes # (auto) 2.4 10 ^3/uL (0.4-5.4); Lymphocytes % (auto) 38.3 % (10.0-50.0); Mean Corpuscular Hemoglobin 30.8 pg (28.0-32.0); Mean Corpuscular Hgb Conc. 34.9 g/dL (32.0-36.0); Mean Corpuscular Volume 88.2 fL (80.0-100.0); Monocytes # (auto) 0.5 10 ^3/uL (0-1.3); Monocytes % (auto) 7.4 % (0.0-12.0); Neutrophils # (auto) 3.2 10 ^3/uL (1.6-8.6); Neutrophils % (auto) 51.6 % (37.0-80.0); Nucleated Red Blood Cells % 0.1 %; Platelet Count (auto) 213 10^3/uL (140-450); Red Blood Cells 3.95 10^6/uL (4.0-5.20); Red Cell Distribution Width 13.8 % (11.8-14.3); White Blood Cell 6.2 10^3/uL (4.4-10.8)
[2024-02-05 06:55] LABS: Chloride 105 mmol/L (98-107); Potassium 3.6 mmol/L (3.5-5.1); Sodium 141 mmol/L (136-145)
[2024-02-05 06:56] LABS: Anion Gap 11 (5-15); Calcium 10.2 mg/dL (8.7-10.4); Carbon Dioxide 25 mmol/L (20-31)
[2024-02-05 07:01] LABS: BUN/Creatinine Ratio 16.1 (10.0-20.0); Blood Urea Nitrogen 10 mg/dL (9-23)
[2024-02-05 07:08] LABS: Glucose 171 mg/dL (74-106)
--- NOTE | 2024-02-05 10:29 | DVHDS2 ---
Discharge Summary Date of Admission Feb 04, 2024 at 15:06 Date of Discharge: Feb 05, 2024 Labs/Diagnostic Data: Laboratory Results Test 02/05/24 05:49 02/05/24 05:14 02/04/24 19:39 02/03/24 12:34 POC Glucose 156 mg/dl (70-106) White Blood Count 6.2 10^3/uL (4.4-10.8) Red Blood Count 3.95 10^6/uL (4.0-5.20) Hemoglobin 12.2 g/dL (12.2-16.2) Hematocrit 34.8 % (36.0-46.0) Mean Corpuscular Volume 88.2 fL (80.0-100.0) Mean Corpuscular Hemoglobin 30.8 pg (28.0-32.0) Mean Corpuscular Hemoglobin Concent 34.9 g/dL (32.0-36.0) Red Cell Distribution Width 13.8 % (11.8-14.3) Platelet Count 213 10^3/uL (140-450) Mean Platelet Volume 7.7 fL (6.9-10.8) Neutrophils (%) (Auto) 51.6 % (37.0-80.0) Lymphocytes (%) (Auto) 38.3 % (10.0-50.0) Monocytes (%) (Auto) 7.4 % (0.0-12.0) Eosinophils (%) (Auto) 1.7 % (0.0-7.0) Basophils (%) (Auto) 1.0 % (0.0-2.0) Neutrophils # (Auto) 3.2 10 ^3/uL (1.6-8.6) Lymphocytes # (Auto) 2.4 10 ^3/uL (0.4-5.4) Monocytes # (Auto) 0.5 10 ^3/uL (0-1.3) Eosinophils # (Auto) 0.1 10 ^3/uL (0-0.8) Basophils # (Auto) 0.1 10 ^3/uL (0-0.2) Nucleated Red Blood Cells 0.1 % Sodium Level 141 mmol/L (136-145) Potassium Level 3.6 mmol/L (3.5-5.1) Chloride Level 105 mmol/L (98-107) Carbon Dioxide Level 25 mmol/L (20-31) Anion Gap 11 (5-15) Blood Urea Nitrogen 10 mg/dL (9-23) Creatinine 0.62 mg/dL (0.550-1.02) Glomerular Filtration Rate Calc 96 mL/min (>90) BUN/Creatinine Ratio 16.1 (10.0-20.0) Serum Glucose 171 mg/dL (74-106) Hemoglobin A1c 7.3 % A1C (<5.7) Calcium Level 10.2 mg/dL (8.7-10.4) Thyroid Stimulating Hormone (TSH) 1.36 uIU/mL (0.55-4.78) Urine Color Light-yellow (Yellow) Urine Clarity Clear (Clear) Urine pH 6.0 (5.0-9.0) Urine Specific [place] 1.022 (1.001-1.035) Urine Protein Negative (Negative) Urine Ketones Negative (Negative) Urine Blood 1+ /uL (Negative) Urine Nitrite Negative (Negative) Urine Bilirubin Negative (Negative) Urine Urobilinogen Normal mg/dL (Negative) Urine Leukocyte Esterase 1+ /uL (Negative) Urine RBC 1 /hpf (0 - 4) Urine WBC 15 /hpf (0 - 5) Urine Squamous Epithelial Cells Few /hpf (<5) Urine Bacteria Few /hpf (None Seen) Urine Glucose Normal mg/dL (Normal) Prothrombin Time 10.8 sec (9.3-11.8) Prothrombin Time INR 1.02 (0.9-1.15) Activated Partial Thromboplast Time 27.1 SEC (24.5-34.5) Total Bilirubin 0.5 mg/dL (0.2-1.0) Aspartate Amino Transferase (AST) 25 U/L (13-40) Alanine Aminotransferase (ALT) 36 U/L (7-40) Alkaline Phosphatase 61 U/L (46-116) Total Protein 7.1 g/dL (5.7-8.2) Albumin 4.8 g/dL (3.2-4.8) Other Laboratory Tests 02/05/24 05:14 Brief Hx & Hospital Course: see dictated note Condition at Discharge: Fair Final Diagnosis/Problems List Severe aortic stenosis with two-vessel coronary disease. Discharge Disposition: Acute Care Facility Discharge Instruct/Medications Diet: Consistent carbohydrate, Cardiac 2g Na,low cholest Activity: No Restrictions, As Tolerated Follow Up/Referral: fu wiht pcp/cardiology Medications: per may Discharge Statement: "Patient was advised to return to the ER or call 911 if any headaches, dizziness, shortness of breath, chest pain, abdominal pain, bleeding, fevers, or worsening of medical condition. Patient was counseled about treatment plan, medications, possible side effects, patientverbalized understanding. All questions were answered to the best of my ability. This discharge took greater then 30 minutes in planning, reviewing documentation, counseling the patient, and discussing with other team members." ASSESSMENT ASSESSMENT Assessment Severe aortic stenosis with two-vessel coronary disease. Date of Service: Feb 05, 2024 Billing Provider: COLLEEN TAVAREZ MD Common Visit Codes: 76500-HHJ/OBS DISCH DAY >30min Secondary Visit Codes: 71160-[id number] CARE PLAN 30 MINUTES COLLEEN TAVAREZ MD Feb 05, 2024 10:29
[2024-02-05] MEDS: ASPirin 81 mg TAB PO SCH (10:37)
--- NOTE | 2024-02-05 10:56 | DVHDS ---
DATE OF DISCHARGE: 02/05/2024 The patient is a 68-year-old lady who was admitted after she was found to have worsening aortic stenosis. The patient subsequently underwent a coronary angiography that showed aortic stenosis along with 2-vessel coronary artery disease. The patient has history of diabetes, hypertension, hypothyroidism, hyperlipidemia and breast cancer. HOSPITAL COURSE: The patient did well post procedure. The patient's hemoglobin A1c was 7.3. TSH was 1.36. The patient now will be transferred to [facility] once bed is available for consideration of open heart surgery, including aortic valve replacement. 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 Advance care planning done with the patient. She is a Full Code. Time spent was 19 minutes. FINAL DIAGNOSES: * Severe aortic stenosis with coronary artery disease. * Diabetes mellitus. * Hypertension. * Hypothyroidism. * Hyperlipidemia. * Obesity. * History of breast cancer. Time spent in discharge planning and review of plan with the patient and family and paperwork was 39 minutes. MD CHERELLE Quintanilla/ÓSCAR TID: [id number] RECEIPT: [id number]
[2024-02-06 01:00] VITALS: BP 95/53; PULSE 79; RESP 18; TEMP 97.5; O2SAT 94
[2024-02-06 05:00] VITALS: BP 141/91; PULSE 95; RESP 17; TEMP 97.3; O2SAT 99
[2024-02-06 08:00] VITALS: PULSE 101; RESP 18; O2SAT 98
[2024-02-06 09:22] VITALS: BP 129/73; PULSE 95; RESP 18; TEMP 97.7; O2SAT 97
--- NOTE | 2024-02-06 10:36 | DVHPN2 ---
Subjective Continues to complain of shortness of breath and chest pain upon exertion Reviewed: Care Plan, H&P, Labs, Medications, Previous Orders, Radiology, Other (Consultation) Changes from previous H/P or p: No Changes Objective Vitals Vital Signs Date Time Temp Pulse Resp B/P (MAP) Pulse Ox O2 Delivery O2 Flow Rate FiO2 02/06/24 09:22 97.7 95 18 129/73 (91) 97 97.7 02/05/24 20:00 Room Air* 0 21 Intake/Output Intake and Output 02/06/24 07:00 Intake Total 1788 ml Output Total 0 ml Balance 1788 ml Intake Oral 1788 ml Output Stool Total 0 ml # Voids 13 General Appearance: Alert, Oriented X3, Cooperative, No acute distress HEENT: Atraumatic Lungs: Clear to auscultation, Normal air movement Cardiovascular: Regular rate, Normal S1, Normal S2, Other (Murmur) Abdomen: Normal bowel sounds, Soft, No tenderness Neuro: Normal speech, Cranial nerves 3-12 NL Psych/Mental Status: Mental status NL, Mood NL Medications Current Medications Medications Dose Ordered Sig/Reji Route Start Time Stop Time Status Last Admin Dose Admin Nitroglycerin 0.4 mg Q5MINP PRN SL 02/04/24 15:15 Morphine Sulfate 2 mg Q30M PRN IV 02/04/24 15:15 Levothyroxine Sodium 88 mcg QAM@0600 PO 02/05/24 06:00 02/06/24 06:12 88 MCG Diagnostic Test (Pha) 1 strip ACHS 02/04/24 17:00 02/06/24 06:25 1 STRIP Insulin Human Regular ACHS SC 02/04/24 17:00 02/06/24 06:26 3 UNITS Dextrose 50 ml UD PRN IV 02/04/24 15:15 Aspirin 81 mg DAILY PO 02/05/24 10:00 02/06/24 09:34 81 MG Atorvastatin Calcium 40 mg HS PO 02/04/24 22:00 02/05/24 21:55 40 MG Patient Own Medication 1 mg DAILY PO 02/05/24 10:00 Acetaminophen 500 mg Q6HP PRN PO 02/04/24 15:30 02/04/24 17:54 500 MG Ondansetron HCl 4 mg Q6HPRN PRN IV 02/04/24 15:30 Laboratory Results Laboratory Tests 02/05/24 05:14 Urinalysis Test 02/04/24 19:39 Urine Color Light-yellow (Yellow) Urine Clarity Clear (Clear) Urine pH 6.0 (5.0-9.0) Urine Specific [place] 1.022 (1.001-1.035) Urine Protein Negative (Negative) Urine Ketones Negative (Negative) Urine Blood 1+ /uL (Negative) H Urine Nitrite Negative (Negative) Urine Bilirubin Negative (Negative) Urine Urobilinogen Normal mg/dL (Negative) Urine Leukocyte Esterase 1+ /uL (Negative) Urine RBC 1 /hpf (0 - 4) Urine WBC 15 /hpf (0 - 5) Urine Squamous Epithelial Cells Few /hpf (<5) Urine Bacteria Few /hpf (None Seen) H Urine Glucose Normal mg/dL (Normal) Labs and/or images reviewed: Labs reviewed by me, Image(s) reviewed by me Assessment/Plan Assessment/Plan Covering Dr. Benson: #Severe aortic stenosis with CAD; transferred to [facility] at [facility] to Unit 10A/Room 30 #Diabetes mellitus type 2; to continue management at [facility] #Essential Hypertension; to continue management at [facility]. #Hypothyroidism; to continue management at [facility] #Hyperlipidemia; to continue management at [facility] #Obesity; counseled on importance of adopting healthy lifestyle with diet and exercise in order to lose weight #History of breast cancer; no active issues The patient was transferred to Higher Level Of Care at [facility] to Unit 10A/Room 30. Discharge summary documented on February 05, 2024 but actual discharge date was February 06, 2024. Goals of care discussion for 20 minutes; full code. Late Entry. This medical document was created using an electronic medical record system with computerized dictation system. Although this document has been carefully reviewed, there might still be some phonetic and typographical errors. These areas are purely typographical due to imperfections of the software programs, and do not reflect any compromise in the patient's medical care. Plan discussed with: Patient, Son, Other (Nurse) Date of Service: Feb 06, 2024 Billing Provider: JOSE FRANCISCO MURRAY MD Common Visit Codes: 17954-IZZ/OBS DISCH DAY >30min Secondary Visit Codes: 93914-[id number] CARE PLAN 30 MINUTES (20 minutes) JOSE FRANCISCO MURRAY MD Feb 06, 2024 10:36
[2024-02-06] MEDS: InsuLIN REG 1unit/0.01ml Soln (100units/ml) SC SCH (12:56)
[2024-02-06 13:00] VITALS: BP 115/73; PULSE 90; RESP 17; TEMP 98.4; O2SAT 94
[2024-02-06 17:20] VITALS: BP 116/81; PULSE 92; RESP 17; TEMP 97.6; O2SAT 95
[2024-02-06] MEDS ORDERED: InsuLIN REG 1unit/0.01ml Soln (100units/ml) SC SCH (22:00)
== END 2024-02-06 20:50 | disposition short-term general hospital (02) | DRG 287 ==
LOC: CATH 08:06 → TELE 15:06 → UNDOADMIN 15:09 → TELE-EAST 17:20
PROVIDERS: ADMIT Internal Medicine; ATTEND Internal Medicine
PROC: 4A023N8 Measurement of Cardiac Sampling and Pressure, Bilateral, Percutaneous Approach (ICD-10-PCS; principal; 2024-02-04)
PROC: B211YZZ Fluoroscopy of Multiple Coronary Arteries using Other Contrast (ICD-10-PCS; 2024-02-04)
PROC: B216YZZ Fluoroscopy of Right and Left Heart using Other Contrast (ICD-10-PCS; 2024-02-04)
DX: I25.10 Atherosclerotic heart disease of native coronary artery without angina pectoris (principal); I35.8 Other nonrheumatic aortic valve disorders; E78.5 Hyperlipidemia, unspecified; E11.9 Type 2 diabetes mellitus without complications; E03.9 Hypothyroidism, unspecified; E66.9 Obesity, unspecified; I10 Essential (primary) hypertension; Z85.3 Personal history of malignant neoplasm of breast; Z95.2 Presence of prosthetic heart valve
CPT/HCPCS: 36415; 80048; 80053; 81001; 82962; 83036; 84443; 85025; 85610; 85730; 93460; 93568; 99152; G0378; J1815; J2250; Q9967

== ENCOUNTER → 2024-03-17 | Outpatient (CLI) | payer OTHER ==
[2024-03-17 10:15] LABS: Basophils # (auto) 0.1 10 ^3/uL (0-0.2); Basophils % (auto) 1.9 % (0.0-2.0); Eosinophils # (auto) 0.3 10 ^3/uL (0-0.8); Eosinophils % (auto) 5.6 % (0.0-7.0); Hematocrit 33.9 % (36.0-46.0); Hemoglobin 11.4 g/dL (12.2-16.2); Lymphocytes # (auto) 2.1 10 ^3/uL (0.4-5.4); Lymphocytes % (auto) 38.8 % (10.0-50.0); Mean Corpuscular Hemoglobin 30.2 pg (28.0-32.0); Mean Corpuscular Hgb Conc. 33.5 g/dL (32.0-36.0); Mean Corpuscular Volume 90.3 fL (80.0-100.0); Monocytes # (auto) 0.4 10 ^3/uL (0-1.3); Monocytes % (auto) 6.6 % (0.0-12.0); Neutrophils # (auto) 2.5 10 ^3/uL (1.6-8.6); Neutrophils % (auto) 47.1 % (37.0-80.0); Nucleated Red Blood Cells % 0.1 %; Platelet Count (auto) 243 10^3/uL (140-450); Red Blood Cells 3.76 10^6/uL (4.0-5.20); Red Cell Distribution Width 16.5 % (11.8-14.3); White Blood Cell 5.4 10^3/uL (4.4-10.8)
[2024-03-17 10:18] LABS: Creatinine, Urine 107.08 mg/dL (30.0-125.0)
[2024-03-17 10:46] LABS: Alanine Aminotransferase 18 U/L (7-40); Alkaline Phosphatase 87 U/L (46-116); Anion Gap 8 (5-15); Calcium 10.2 mg/dL (8.7-10.4); Carbon Dioxide 25 mmol/L (20-31); Chloride 107 mmol/L (98-107); Potassium 4.4 mmol/L (3.5-5.1); Sodium 140 mmol/L (136-145)
[2024-03-17 10:49] LABS: Albumin 4.5 g/dL (3.2-4.8); LDL Cholesterol 77 mg/dL (< 100)
[2024-03-17 10:50] LABS: Aspartate Aminotransferase 16 U/L (13-40); Bilirubin, Total 0.3 mg/dL (0.2-1.0); Blood Urea Nitrogen 8 mg/dL (9-23); Cholesterol 144 mg/dL (< 200); Glucose 144 mg/dL (74-106); HDL Cholesterol 46 mg/dL (40-59); Total Protein 6.8 g/dL (5.7-8.2); Triglycerides 200 mg/dL (< 150)
== END | disposition home or self-care (01) ==
LOC: LAB 09:26
PROVIDERS: ATTEND Internal Medicine
DX: E11.9 Type 2 diabetes mellitus without complications (principal); I10 Essential (primary) hypertension; E03.9 Hypothyroidism, unspecified
CPT/HCPCS: 36415; 80053; 80061; 82043; 82570; 83036; 84443; 85025

== ENCOUNTER → 2024-04-13 | Outpatient (CLI) | payer OTHER ==
[2024-04-13 14:05] LABS: Basophils # (auto) 0.1 10 ^3/uL (0-0.2); Basophils % (auto) 1.1 % (0.0-2.0); Eosinophils # (auto) 0.2 10 ^3/uL (0-0.8); Eosinophils % (auto) 2.8 % (0.0-7.0); Hemoglobin 12.3 g/dL (12.2-16.2); Lymphocytes # (auto) 2.6 10 ^3/uL (0.4-5.4); Lymphocytes % (auto) 43.3 % (10.0-50.0); Mean Corpuscular Hemoglobin 29.2 pg (28.0-32.0); Mean Corpuscular Hgb Conc. 33.2 g/dL (32.0-36.0); Mean Corpuscular Volume 87.9 fL (80.0-100.0); Monocytes # (auto) 0.4 10 ^3/uL (0-1.3); Monocytes % (auto) 5.9 % (0.0-12.0); Neutrophils # (auto) 2.8 10 ^3/uL (1.6-8.6); Neutrophils % (auto) 46.9 % (37.0-80.0); Nucleated Red Blood Cells % 0.1 %; Platelet Count (auto) 246 10^3/uL (140-450); White Blood Cell 6.1 10^3/uL (4.4-10.8)
[2024-04-13 14:27] LABS: Alanine Aminotransferase 13 U/L (7-40); Alkaline Phosphatase 68 U/L (46-116); Anion Gap 7 (5-15); BUN/Creatinine Ratio 13.6 (10.0-20.0); Blood Urea Nitrogen 11 mg/dL (9-23); Carbon Dioxide 28 mmol/L (20-31); Chloride 104 mmol/L (98-107); Potassium 4.5 mmol/L (3.5-5.1); Sodium 139 mmol/L (136-145)
[2024-04-13 14:28] LABS: Albumin 4.7 g/dL (3.2-4.8); Aspartate Aminotransferase 15 U/L (13-40); Total Protein 6.9 g/dL (5.7-8.2)
[2024-04-13 14:30] LABS: Calcium 10.8 mg/dL (8.7-10.4); Glucose 111 mg/dL (74-106)
[2024-04-13 14:31] LABS: Bilirubin, Total 0.2 mg/dL (0.2-1.0)
== END | disposition home or self-care (01) ==
LOC: LAB 13:28
PROVIDERS: ATTEND Internal Medicine
DX: C50.411 Malignant neoplasm of upper-outer quadrant of right female breast (principal)
CPT/HCPCS: 36415; 80053; 83615; 85025; 86300

== ENCOUNTER → 2024-04-26 | Outpatient (CLI) | payer OTHER ==
[2024-04-26 11:59] LABS: Basophils # (auto) 0.1 10 ^3/uL (0-0.2); Eosinophils # (auto) 0.2 10 ^3/uL (0-0.8); Eosinophils % (auto) 2.9 % (0.0-7.0); Hematocrit 37.9 % (36.0-46.0); Hemoglobin 12.5 g/dL (12.2-16.2); Lymphocytes # (auto) 2.4 10 ^3/uL (0.4-5.4); Lymphocytes % (auto) 46.1 % (10.0-50.0); Mean Corpuscular Hemoglobin 29.1 pg (28.0-32.0); Monocytes # (auto) 0.4 10 ^3/uL (0-1.3); Monocytes % (auto) 7.2 % (0.0-12.0); Neutrophils # (auto) 2.2 10 ^3/uL (1.6-8.6); Neutrophils % (auto) 42.8 % (37.0-80.0); Nucleated Red Blood Cells % 0.2 %; Platelet Count (auto) 209 10^3/uL (140-450); White Blood Cell 5.2 10^3/uL (4.4-10.8)
[2024-04-26 12:57] LABS: Triglycerides 130 mg/dL (< 150)
[2024-04-26 12:58] LABS: LDL Cholesterol 92 mg/dL (< 100)
[2024-04-26 12:59] LABS: Cholesterol 159 mg/dL (< 200); HDL Cholesterol 49 mg/dL (40-59)
== END | disposition home or self-care (01) ==
LOC: LAB 11:31
PROVIDERS: ATTEND Internal Medicine
DX: E11.9 Type 2 diabetes mellitus without complications (principal); E03.9 Hypothyroidism, unspecified
CPT/HCPCS: 36415; 80061; 84443; 85025

== ENCOUNTER → 2024-05-26 | Outpatient (CLI) | payer OTHER ==
[2024-05-26 11:55] LABS: Bilirubin, Direct 0.1 mg/dL (<0.3); Bilirubin, Total 0.3 mg/dL (0.2-1.0); Total Protein 7.3 g/dL (5.7-8.2)
[2024-05-26 11:56] LABS: Albumin 4.9 g/dL (3.2-4.8)
== END | disposition home or self-care (01) ==
LOC: LAB 11:08
PROVIDERS: ATTEND Internal Medicine
DX: E78.5 Hyperlipidemia, unspecified (principal)
CPT/HCPCS: 36415; 80076

== ENCOUNTER → 2024-07-07 | Outpatient (CLI) | payer OTHER ==
[2024-07-07 10:30] LABS: Alanine Aminotransferase 30 U/L (7-40); Albumin 4.6 g/dL (3.2-4.8); Alkaline Phosphatase 52 U/L (46-116); Anion Gap 10 (5-15); Aspartate Aminotransferase 26 U/L (13-40); BUN/Creatinine Ratio 18.3 (10.0-20.0); Blood Urea Nitrogen 13 mg/dL (9-23); Carbon Dioxide 25 mmol/L (20-31); Chloride 105 mmol/L (98-107); Cholesterol 174 mg/dL (< 200); HDL Cholesterol 49 mg/dL (40-59); Potassium 4.3 mmol/L (3.5-5.1); Sodium 140 mmol/L (136-145); Total Protein 6.9 g/dL (5.7-8.2); Triglycerides 132 mg/dL (< 150)
[2024-07-07 10:31] LABS: Bilirubin, Total 0.5 mg/dL (0.2-1.0)
[2024-07-07 10:34] LABS: Calcium 10.6 mg/dL (8.7-10.4); Glucose 121 mg/dL (74-106); LDL Cholesterol 107 mg/dL (< 100)
[2024-07-07 10:36] LABS: Creatinine, Urine 57.72 mg/dL (30.0-125.0)
== END | disposition home or self-care (01) ==
LOC: LAB 09:40
PROVIDERS: ATTEND Internal Medicine
DX: E11.9 Type 2 diabetes mellitus without complications (principal); E78.5 Hyperlipidemia, unspecified
CPT/HCPCS: 36415; 80053; 80061; 82043; 82570

== ENCOUNTER 2024-10-11 12:36 | Outpatient (CLI) | payer OTHER ==
[2024-10-11 13:08] LABS: Hematocrit 37.4 % (36.0-46.0); Hemoglobin 12.7 g/dL (12.2-16.2); Mean Corpuscular Hemoglobin 30.1 pg (28.0-32.0); Mean Corpuscular Volume 88.1 fL (80.0-100.0); Nucleated Red Blood Cells % 0.0 %
[2024-10-11 13:22] LABS: Alanine Aminotransferase 32 U/L (7-40); Alkaline Phosphatase 65 U/L (46-116); Anion Gap 11 (5-15); BUN/Creatinine Ratio 11.4 (10.0-20.0); Calcium 9.8 mg/dL (8.7-10.4); Carbon Dioxide 24 mmol/L (20-31); Chloride 105 mmol/L (98-107); Potassium 4.2 mmol/L (3.5-5.1); Sodium 140 mmol/L (136-145); Total Protein 6.6 g/dL (5.7-8.2)
[2024-10-11 13:23] LABS: Albumin 4.6 g/dL (3.2-4.8); Bilirubin, Total 0.3 mg/dL (0.2-1.0)
[2024-10-11 13:24] LABS: Blood Urea Nitrogen 9 mg/dL (9-23); Glucose 181 mg/dL (74-106)
[2024-10-13 12:07] LABS: CA 27.29 26.7 U/mL (0.0-38.6)
== END 2024-10-11 17:00 | disposition home or self-care (01) ==
LOC: LAB 12:36
PROVIDERS: ATTEND Psychiatry & Neurology Neurology
DX: C50.411 Malignant neoplasm of upper-outer quadrant of right female breast (principal); G62.2 Polyneuropathy due to other toxic agents
CPT/HCPCS: 36415; 80053; 82306; 82746; 83615; 84155; 84165; 85025; 86300

== ENCOUNTER 2024-11-15 10:19 | Outpatient (CLI) | payer OTHER ==
[2024-11-15 11:16] LABS: Hematocrit 38.3 % (36.0-46.0); Hemoglobin 13.3 g/dL (12.2-16.2); Mean Corpuscular Hemoglobin 30.3 pg (28.0-32.0); Mean Corpuscular Volume 87.2 fL (80.0-100.0); Nucleated Red Blood Cells % 0.0 %
[2024-11-15 11:32] LABS: Alanine Aminotransferase 40 U/L (7-40); Alkaline Phosphatase 81 U/L (46-116); Anion Gap 13 (5-15); BUN/Creatinine Ratio 13.8 (10.0-20.0); Blood Urea Nitrogen 11 mg/dL (9-23); Calcium 9.6 mg/dL (8.7-10.4); Carbon Dioxide 24 mmol/L (20-31); Chloride 103 mmol/L (98-107); Potassium 4.3 mmol/L (3.5-5.1); Sodium 140 mmol/L (136-145); Total Protein 7.0 g/dL (5.7-8.2)
[2024-11-15 11:33] LABS: Albumin 4.6 g/dL (3.2-4.8)
[2024-11-15 11:34] LABS: Bilirubin, Total 0.4 mg/dL (0.2-1.0); Cholesterol 150 mg/dL (< 200); HDL Cholesterol 46 mg/dL (40-59)
[2024-11-15 11:39] LABS: Glucose 142 mg/dL (74-106); Triglycerides 242 mg/dL (< 150)
[2024-11-16 06:07] LABS: Kappa Lite Chain Free Serum 46.3 mg/L (3.3-19.4)
[2024-11-16 08:07] LABS: Immunoglobulin A 353 mg/dL (87-352); Immunoglobulin G, Serum 597 mg/dL (586-1602); Immunoglobulin M 96 mg/dL (26-217)
== END 2024-11-15 17:00 | disposition home or self-care (01) ==
LOC: LAB 10:19
PROVIDERS: ATTEND Internal Medicine
DX: E11.9 Type 2 diabetes mellitus without complications (principal); E78.5 Hyperlipidemia, unspecified; Z12.11 Encounter for screening for malignant neoplasm of colon
CPT/HCPCS: 36415; 80053; 80061; 82784; 83036; 83521; 83970; 84155; 84165; 84443; 85025; 86334

== ENCOUNTER → 2024-11-19 | Outpatient (CLI) | payer OTHER | END | disposition home or self-care (01) | LOC: LAB 11:32 | PROVIDERS: ATTEND Internal Medicine | DX: E11.9 Type 2 diabetes mellitus without complications (principal); E78.5 Hyperlipidemia, unspecified; Z12.11 Encounter for screening for malignant neoplasm of colon | CPT/HCPCS: 82270 ==

== ENCOUNTER 2025-02-22 10:10 | Outpatient (CLI) | payer OTHER ==
[2025-02-22 10:30] LABS: Hematocrit 35.3 % (36.0-46.0); Hemoglobin 12.1 g/dL (12.2-16.2); Mean Corpuscular Hemoglobin 29.9 pg (28.0-32.0); Mean Corpuscular Volume 87.0 fL (80.0-100.0); Nucleated Red Blood Cells % 0.0 %
== END 2025-02-22 17:00 | disposition home or self-care (01) ==
LOC: LAB 10:10
PROVIDERS: ATTEND Internal Medicine
DX: I25.810 Atherosclerosis of coronary artery bypass graft(s) without angina pectoris (principal); E11.620 Type 2 diabetes mellitus with diabetic dermatitis; E03.9 Hypothyroidism, unspecified
CPT/HCPCS: 36415; 83036; 84443; 85025; 85652